=== PATIENT | female | born 1985 | race Caucasian/White ===

== ENCOUNTER 2020-06-25 10:12 | Emergency (ER) | payer MEDICAID ==
[~2020-06-25] VITALS: Ht 165.1 cm; Wt 74.7 kg
[2020-06-25] MEDS ORDERED: dexamethasone sod phosphate 10mg/ml inj IM STA (11:18)
[2020-06-25] MEDS ORDERED: iohexol 350MG/ML 100ml bottle IV ONE (11:54)
[2020-06-25 12:56] VITALS: BP 105/75
== END 2020-06-25 13:01 | disposition home or self-care (01) ==
LOC: ER 10:13
DX: R51.9 Headache, unspecified (principal); R11.0 Nausea
CPT/HCPCS: 70496; 96372; 99285; J1100; Q9967